=== PATIENT | female | born 1975 | race Caucasian/White ===

== ENCOUNTER 2018-08-31 08:39 | Emergency (ER) | payer MEDICAID ==
[~2018-08-31] VITALS: Ht 152.4 cm; Wt 73.7 kg
[2018-08-31 08:47] VITALS: BP 150/89; Ht 152.4 cm; Wt 73.7 kg
== END 2018-08-31 12:06 | disposition home or self-care (01) ==
LOC: ED 08:39
DX: M54.42 Lumbago with sciatica, left side (principal)
CPT/HCPCS: J1885

== ENCOUNTER 2019-07-03 15:43 | Emergency (ER) | payer MEDICAID ==
[~2019-07-03] VITALS: Ht 152.4 cm; Wt 61.7 kg
[2019-07-03 16:10] VITALS: Ht 152.4 cm; Wt 61.7 kg
[2019-07-03 16:30] LABS: BASOPHIL % 0.4 % (0-2); PLATELET COUNT 239 x10^3mcL (130-400)
[2019-07-03 16:48] LABS: CALCIUM 9.3 mg/dL (8.5-10.1); CARBON DIOXIDE 25.3 mmol/L (21-32); CHLORIDE SERUM 102 mmol/L (98-107); CREATININE SERUM 0.6 mg/dL (0.6-1.0); GFR1 > 60 mL/min; GLUCOSE SERUM 123 mg/dL (74-106); POTASSIUM SERUM 3.9 mmol/L (3.5-5.1); SODIUM SERUM 139 mmol/L (136-145)
[2019-07-03 16:53] LABS: ALBUMIN 3.9 g/dL (3.4-5.0); ALKALINE PHOSPHATASE 69 U/L (46-116); ALT/SGPT 35 U/L (14-59); AST/SGOT 16 U/L (15-37); BILIRUBIN TOTAL 0.24 mg/dL (0.20-1.00); LIPASE 109 IU/L (73-393)
[2019-07-03 17:00] LABS: TOTAL PROTEIN, SERUM 8.5 g/dL (6.4-8.2)
[2019-07-03 19:01] VITALS: BP 148/57
== END 2019-07-03 19:01 | disposition home or self-care (01) ==
LOC: ED 15:43
PROVIDERS: Specialist
DX: K29.70 Gastritis, unspecified, without bleeding (principal)
CPT/HCPCS: 36415